=== PATIENT | male | born 1995 | race Caucasian/White ===

== ENCOUNTER 2018-02-25 05:16 | Day surgery (SDC) | payer OTHER, SELFPAY ==
[2018-02-25] VITALS (8 sets, daily range): BP systolic 96–121; BP diastolic 48–79; PULSE 59–87; RESP 14–16; TEMP 36.2–36.8; O2SAT 98–100; BMI 20.5
[2018-02-25] MEDS: Cefazolin 2 GM in 0.9% Normal Saline 100 ML IV (07:15)
--- NOTE | 2018-02-25 07:15 | RAD_ITS ---
STUDY: X-RAY - LEFT CLAVICLE REASON FOR EXAM: Male, 22 years old. ORIF of the left clavicle. TECHNIQUE: Four intraoperative view(s) of the clavicle. COMPARISON: None. FINDINGS: The patient is status post open reduction and internal fixation of the left clavicular fracture using screws and side plate fixation device. There is good alignment. RAD/Clavicle IMPRESSION: Intraoperative imaging provided for ORIF of the left midclavicular fracture. Electronically Signed: Prakash Cantu MD at 9:45 EDT Tel [phone], Service support ,
--- NOTE | 2018-02-25 08:16 | PCM.OPRPT ---
Report of Operation Date of Procedure: 02/25/18 Pre-Operative Diagnosis: Left comminuted displaced midshaft clavicle fracture Post-Operative Diagnosis: Left comminuted displaced midshaft clavicle fracture Surgery/Procedure Performed:: ORIF left clavicle fracture Description of Surgical Findings:: Well reduced fracture education administrative assistant: Lisa Fuller Type of Anesthesia:: General Anesthesiologist: Noman Potts Special Medications: 2 g Ancef Estimated Blood Loss (mL): 5 Fluids Replaced: 800 ml crystalloid Description of Procedure: On the date of the procedure patient's left shoulder was marked in the preoperative area. Patient was taken back the operating room he was transferred the table in supine position. Anesthesia assumed control the C-spine airway administered anesthetic. They remain to control the C-spine airway throughout the remainder the procedure. Patient was placed in a beachchair position and live fluoroscopy was used to verify appropriate x-rays can be obtained in his position. Patient said was in adequately secured. All bony prominences were identified and well-padded. Left upper extremities and prepped in a sterile fashion while the surgeon scrubbed. Upon reentering the room the left upper extremity was draped in a standard orthopedic fashion incision was marked out and timeout was called. Everyone agreed upon the side, the site, antibiotics given, patient identity and procedure to be performed. Incision was taken at the skin subcutaneous tissue fat down to fascia. We identified the fracture site at this time and cleaned of the fracture is. Fracture hematoma was removed and wound was copiously ate out normal saline. At this time we were able to identify 3 clear fragments. The large distal and proximal fragment. There was one posterior inferior fragment that was not clearly identified however based on the reduction we could obtain we do not feel we need to disrupt the soft tissue envelope anymore. At this time the small butterfly fragment was reduced to the distal fragment and a 2.7 mm lag screw was placed. This gave us a good and and reduction to the proximal fragment. Based on the placement of the screw and the angle of the fracture fragment we were unable to obtain another lag screw. At this time we elected to compress to the plate. 3.5 mm 7 hole superior plate was selected and put in the appropriate place. 2 screws were used to provisionally fix the plate in place and live x-ray was used to verify fracture reduction and plate placement. Once were happy with our fracture reduction and plate placement we placed 2 more screws distally and compressed through 2 screws proximally. We obtained good compression of the fracture. Live x-ray was once again used to verify fracture reduction and plate placement. Once this was completed was completed out normal saline. Fascia was closed with 0 Vicryl skin was closed with 2-0 Vicryl and final skin closure was done with Monocryl and Steri-Strips. Sterile dressing was placed, patient was placed in a splint patient was then awakened by anesthesia and transferred to PACU for recovery. Postoperative plan: Patient will remain in his sling with activities below the level of his head as tolerated and nonweightbearing for the next 2 weeks. At 2 weeks he will come in for a wound check will begin range of motion as tolerated. At 6 weeks we will begin strengthening. Grafts/Implants Used: Synthes 8 hole superior clavicle plate - Complications none - Admit VTE Documentation VTE Present on Admission: No VTE Mechan Device Prophylaxis: SCD's VTE Pharm Prophylaxis ordered?: Yes
== END 2018-02-25 12:07 | disposition home or self-care (01) ==
LOC: SDC 05:19 → AC 05:22
PROVIDERS: Visit Provider Specialist
PROC: (CPT 23515; principal; 2018-02-25 06:55)
DX: S42.022A Displaced fracture of shaft of left clavicle, initial encounter for closed fracture (principal); W03.XXXA Other fall on same level due to collision with another person, initial encounter; Y93.89 Activity, other specified; Y92.9 Unspecified place or not applicable
CPT/HCPCS: 23515; 64415; 73000; 76000; C1713; J7120; J2405